=== PATIENT | male | born 1955 | race Caucasian/White ===

== ENCOUNTER 2021-06-03 02:28 | Emergency (ER) | payer OTHER ==
[~2021-06-03] VITALS: Ht 162.6 cm; Wt 54.0 kg
[2021-06-03] MEDS ORDERED: 0.9% SODIUM CHLORIDE 10 ML SYRINGE IVP PRN (02:45)
[2021-06-03 03:09] LABS: HEMOGLOBIN 12.3 g/dL (13.5-17.5)
[2021-06-03] MEDS ORDERED: PIPERACILLIN/TAZO 3.375 GM/D5W 50 ML IV ONE (03:15)
[2021-06-03 03:17] LABS: BASOPHILS % (AUTO) 0.9 % (0.0-2.0); HEMATOCRIT 37.5 % (41-53); LYMPHOCYTES # (AUTO) 1.9 K/uL (1.0-4.8); LYMPHOCYTES % (AUTO) 20.1 % (22.0-44.0); MEAN CORPUSCULAR HEMOGLOBIN 28.8 pg (26.0-34.0); MEAN CORPUSCULAR HGB CONC 32.7 G/dL (31.0-37.0); MEAN CORPUSCULAR VOLUME 88 fL (80-100); MONOCYTES # (AUTO) 0.8 K/uL (0.1-1.0); MONOCYTES % (AUTO) 8.8 % (2.0-9.0); NEUTROPHILS # (AUTO) 5.2 K/uL (1.8-7.7); NEUTROPHILS % (AUTO) 56.2 % (40.0-70.0); PLATELET COUNT (AUTO) 207 K/uL (150-450); RED BLOOD CELL COUNT(AUTO) 4.26 MIL/uL (4.50-5.90); RED CELL DISTRIBUTION WIDTH 14.8 % (11.5-14.5)
[2021-06-03 03:21] LABS: CALCIUM, TOTAL 8.6 mg/dL (8.8-10.5); CREATININE 1.29 mg/dL (0.60-1.30); POTASSIUM 4.4 mmol/L (3.5-5.1)
[2021-06-03] MEDS ORDERED: FINA1TAB17 PO (03:22)
[2021-06-03] MEDS ORDERED: TAMS-13 PO (03:22)
[2021-06-03] MEDS ORDERED: INSLAN SQ (03:22)
[2021-06-03] MEDS ORDERED: LEVO125 PO (03:22)
[2021-06-03] MEDS ORDERED: ASPI81TA39 PO (03:22)
[2021-06-03] MEDS ORDERED: SENN-277 PO (03:22)
[2021-06-03] MEDS ORDERED: BECL10.6 IH (03:22)
[2021-06-03] MEDS ORDERED: INSU100V SQ (03:22)
[2021-06-03] MEDS ORDERED: FINA-27 PO (03:22)
[2021-06-03] MEDS ORDERED: DSSL PO (03:22)
[2021-06-03] MEDS ORDERED: METO25 PO (03:22)
[2021-06-03] MEDS ORDERED: POLY119P17 PO (03:22)
[2021-06-03] MEDS ORDERED: ALBU8.5H8 IH (03:22)
[2021-06-03 03:27] LABS: ALBUMIN 3.3 g/dL (3.4-5.0); BILIRUBIN,TOTAL 0.4 mg/dL (0.1-1.0); PROTHROMBIN TIME 10.8 SEC (9.4-11.6)
[2021-06-03 03:29] LABS: LACTIC ACID 1.8 mmol/L (0.4-2.0)
[2021-06-03] MEDS ORDERED: VANCOMYCIN HCL 1 GM/D5% WATER 200 ML IV ONE (03:30)
[2021-06-03] MEDS ORDERED: ACETAMINOPHEN 325 MG TABLET PO PRN (03:45)
[2021-06-03] MEDS ORDERED: INSULIN REGULAR, HUMAN 100 UNITS/ML SQ ONE (03:45)
[2021-06-03] MEDS ORDERED: ONDANSETRON HCL 4 MG/2 ML VIAL IVP PRN (03:45)
[2021-06-03 04:20] VITALS: BP 124/59
[2021-06-04] MEDS ORDERED: DOCU-270 PO (11:26)
[2021-06-04] MEDS ORDERED: ROSU10TA72 PO (11:30)
[2021-06-04] MEDS ORDERED: BECL10.62 IH (11:32)
[2021-06-04] MEDS ORDERED: SALM50DI2 IH (12:31)
[2021-06-06] MEDS ORDERED: ERTA1I IV (14:44)
== END 2021-06-03 06:18 | disposition home or self-care (01) ==
LOC: EMS 02:31
DX: G40.909 Epilepsy, unspecified, not intractable, without status epilepticus (principal)
CPT/HCPCS: 36415; 70450; 71045; 80053; 82550; 83605; 83880; 84484; 85025; 85610; 87040; 93005; 96365; 96366; 96368; 96372; 99291; J1815; J2543; J3370; 96367